=== PATIENT | female | born 1975 | race Hispanic/Latino ===

== ENCOUNTER 2016-05-01 07:57 | Outpatient (CLI) | payer OTHER ==
--- NOTE | 2016-05-01 16:03 | Mammography Report ---
BILATERAL DIGITAL SCREENING MAMMOGRAM with CAD: 05/01/16 07:57:00 CLINICAL: Routine screening. COMPARISON:05/01/15 FINDINGS: The breasts are heterogeneously dense, which may obscure small masses.There has been some fatty involution since the previous exam. No mass, architectural distortion or suspicious calcifications. IMPRESSION: No mammographic evidence of malignancy. BI-RADS CATEGORY: 1 - - Negative RECOMMENDATION: Routine mammographic screening in one year. COMMENT: Patient follow-up letters are generated by our [employer] application. The
== END 2016-05-01 07:58 | disposition home or self-care (01) ==
LOC: SPVWC 07:57
PROVIDERS: ATTEND Obstetrics & Gynecology
DX: Z12.31 Encounter for screening mammogram for malignant neoplasm of breast (principal)
CPT/HCPCS: 77067; G0202